=== PATIENT | male | born 1955 | race Caucasian/White ===

== ENCOUNTER → 2018-07-05 08:14 | Outpatient (CLI) | payer OTHER, SELFPAY ==
[2018-07-05 10:33] LABS: Anion Gap 9 (5-15); BUN 15 mg/dL (7-18); BUN/Creat Ratio 15.9 RATIO (10-20); Chloride 102 mmol/L (98-107); Creatinine, Serum 0.94 mg/dL (0.70-1.30); EST Glomerular Filtration Rate 86 mL/min (>60); Est Glom Filt Rate - Afr Amer 104 mL/min (>60); Glucose 127 mg/dL (74-106); Potassium 3.9 mmol/L (3.5-5.1); Sodium Level 142 mmol/L (136-145)
== END ==
PROVIDERS: Family Provider Family Medicine; PCP Family Medicine; Visit Provider Family Medicine
DX: I10 Essential (primary) hypertension (principal)
CPT/HCPCS: 36415; 80048

== ENCOUNTER → 2021-09-03 08:53 | Outpatient (CLI) | payer MEDICARE, OTHER, SELFPAY ==
[2021-09-03 10:45] LABS: ALB/GLOB Ratio 0.8 RATIO (0.9-2.4); AST(SGOT) 13 U/L (15-37); Alanine Aminotransfer ALT/SGPT 24 U/L (16-61); Albumin, Serum 3.3 g/dL (3.2-5.0); Alkaline Phosphatase 58 U/L (45-117); Anion Gap 9 (5-15); BUN 21 mg/dL (7-18); BUN/Creat Ratio 21.5 RATIO (10-20); Calcium,Total 9.4 mg/dL (8.5-10.1); Chloride 100 mmol/L (98-107); Cholesterol 210 mg/dL (200); Creatinine, Serum 0.98 mg/dL (0.70-1.30); EST Glomerular Filtration Rate 81 mL/min (>60); Est Glom Filt Rate - Afr Amer 98 mL/min (>60); Globulin 3.9 g/dL (2.2-4.2); Glucose 120 mg/dL (74-106); High Density Lipoprotein 51 mg/dL; PSA,Total - Annual Screen 2.41 ng/mL (0.00-4.00); Potassium 3.6 mmol/L (3.5-5.1); Protein, Total 7.2 g/dL (6.4-8.2); Sodium Level 139 mmol/L (136-145); Triglycerides 124 mg/dL; Very Low Density Lipoprotein 25 mg/dL (5-40)
== END ==
PROVIDERS: PCP Family Medicine; Referring Provider Family Medicine; Visit Provider Family Medicine
DX: F52.21 Male erectile disorder (principal); I10 Essential (primary) hypertension; Z12.5 Encounter for screening for malignant neoplasm of prostate
CPT/HCPCS: 36415; 80053; 80061; 84153; G0103

== ENCOUNTER → 2023-04-10 | Outpatient (CLI) | payer MEDICARE, OTHER, SELFPAY ==
[2023-04-10 10:08] LABS: Absolute Lymphocyte Count 2.61 X10^3/uL (0.83-4.51); Absolute Neutrophil Count 6.4 X10^3/uL (2.0-7.7); Basophil# 0.04 X10^3/uL; Basophil% 0.4 % (0-1); Eosinophil# 0.18 X10^3/uL; Eosinophils% 1.8 % (0-5); Hemoglobin 17.3 g/dL (13.0-16.5); Lymphocyte # 2.61 X10^3/ul (0.83-4.51); Lymphocyte % 25.6 % (19-41); Mean Corp Hgb Conc 34.6 g/dL (32-36); Mean Corpuscular Volume 89.6 fL (80-94); Mean Platelet Vol. 10.4 fl (6.2-12.0); Monocyte# 0.93 X10^3/uL; Monocyte% 9.1 % (0-10); NRBC Flagged by Analyzer 0 % (0-5); Neutrophil # 6.41 X10^3/uL (2.7-7.7); Neutrophil % 62.7 % (47-70); Platelet Count 276 K/mm3 (150-450); RBC Distribution Width CV 13.2 % (11.6-14.6); RBC Distribution Width SD 43.3 fl (35.1-43.9); Red Blood Count 5.58 M/mm3 (4.6-6.2); White Blood Count 10.2 K/mm3 (4.4-11.0)
[2023-04-10 10:11] LABS: Erythrocyte Sedimentation Rate 5 mm/hr (0-20)
[2023-04-10 10:30] LABS: ALB/GLOB Ratio 0.8 RATIO (0.9-2.4); AST(SGOT) 15 U/L (15-37); Alanine Aminotransfer ALT/SGPT 31 U/L (16-61); Albumin, Serum 3.5 g/dL (3.2-5.0); Alkaline Phosphatase 89 U/L (45-117); Anion Gap 6 (5-15); BUN 21 mg/dL (7-18); BUN/Creat Ratio 19.3 RATIO (10-20); CRP 7.79 mg/L (0.0-3.0); Calcium,Total 9.6 mg/dL (8.5-10.1); Chloride 101 mmol/L (98-107); Creatinine, Serum 1.09 mg/dL (0.70-1.30); EST Glomerular Filtration Rate 71 mL/min (>60); Est Glom Filt Rate - Afr Amer 86 mL/min (>60); Globulin 4.2 g/dL (2.2-4.2); Glucose 97 mg/dL (74-106); Potassium 3.9 mmol/L (3.5-5.1); Protein, Total 7.7 g/dL (6.4-8.2); Sodium Level 134 mmol/L (136-145)
== END | disposition home or self-care (01) ==
LOC: MTLAB 08:41
PROVIDERS: PCP Family Medicine; Referring Provider Family Medicine; Visit Provider Family Medicine
DX: R19.7 Diarrhea, unspecified (principal)
CPT/HCPCS: 36415; 80053; 85025; 85652; 86140

== ENCOUNTER → 2023-04-12 | Outpatient (CLI) | payer MEDICARE, OTHER, SELFPAY | END | disposition home or self-care (01) | PROVIDERS: PCP Family Medicine; Referring Provider Family Medicine; Visit Provider Family Medicine | DX: R19.7 Diarrhea, unspecified (principal) | CPT/HCPCS: 87177; 87209 ==

== ENCOUNTER 2023-05-19 07:55 | Day surgery (SDC) | payer MEDICARE, OTHER, SELFPAY ==
[2023-05-19] VITALS (8 sets, daily range): BP systolic 71–163; BP diastolic 54–83; PULSE 57–60; RESP 14–18; TEMP 36.1–36.7; O2SAT 96–100; BMI 24.8
[2023-05-19] MEDS: Lactated Ringers 1,000 ML 15 ML IV (08:14)
--- NOTE | 2023-05-19 08:59 | PCM.HP.BLA ---
History and Physical Date of Admission: 05/19/23 Intake Vital Signs ? 04/28/2312:52 Height 6 ft 1 in Weight: 188 lb 6 oz BMI 24.8 BP 148/84 H Blood Pressure Location Lt radial Position Sitting Respiration 18 Pulse 67 Pulse Source Monitor Temp 98.0 F Temp Source Temporal Intake Visit Reasons:?COLONOSCOPY/POLYP Chief Complaint: Diarrhea Director Child Abuse Therapy Required: No Is patient in pain?: No Allergies No Known Allergies Allergy (Verified 04/28/23 12:54) Medications lisinopril 20 mg-hydrochlorothiazide 12.5 mg tablet 1 ea PO DAILY 09/17/17 [History Confirmed 04/28/23] metoprolol tartrate 100 mg tablet 100 mg PO BID 09/17/17 [History Confirmed 04/28/23] atorvastatin 10 mg tablet 10 mg PO 04/28/23 [History Confirmed 04/28/23] multivitamin with minerals-folic acid 200 mcg chewable tablet (Adult Multivitamin Gummies) tab PO 04/28/23 [History Confirmed 04/28/23] simethicone 80 mg chewable tablet (Gas Relief (simethicone)) 80 mg PO 04/28/23 [History Confirmed 04/28/23] tadalafil 5 mg tablet (Cialis) 5 mg PO DAILY 04/28/23 [History Confirmed 04/28/23] PFSH Medical History?(Updated 04/28/23 @ 15:[address] Georges Lim MD) Bilateral inguinal hernia External hemorrhoids Hypertension Surgical History? S/P bilateral inguinal hernia repair S/P tonsillectomy Family History? Father CVA (cerebral vascular accident) Social History? Smoking Status:? Current every day smoker tobacco type: cigarettes second hand exposure:? Yes alcohol intake:? never substance use type:? does not use caffeine:? Yes what type of physical activity do you participate in:? none seatbelt use:? always HPI HPI HPI: Patient is a 59-year-old male here for colonoscopy.? He had a colonoscopy in 2017 and a polyp was removed.? He was recommended to repeat but has not done so yet.? He denies abdominal pain.? He says he usually has constipation but a few weeks ago he had an episode of extreme constipation and then has had diarrhea off and on ever since.? Patient denies any blood in his stool. ROS General General: Yes fatigue; No weight change, appetite, colon cancer, breast cancer or weakness HEENT HEENT: No difficulty swallowing, eye injury, eye surgery, swollen glands or hoarseness Endo Endocrine: No thyroid disease, diabetes mellitus, thyroid cancer, Hair loss, heat intolerance or cold intolerance Skin Skin: No rash or changing moles Breast Breast: No left breast lump, right breast lump, nipple discharge, breast pain, abnormal mammogram, abnormal US or breast enlargement Musc Musculoskeletal: Yes back problems; No arthritis, rheumatoid arthritis, gout or joint pain Cardio Cardiovascular: Yes high blood pressure; No murmur, pacemaker, heart disease, atrial fibrillation, heart attack, heart stent, palpitations, shortness of breat with exertion or chest pain Psych Psychiatric: No depression, anxiety or hearing voices Resp Respiratory: No shortness of breath, No sleep apnea, No cough, No COPD, No asthma, No emphysema and No wheezing Gastro Gastrointestinal: No abdominal pain, No nausea or vomiting, Yes diarrhea, No constipation, No blood in stool, No acid reflux, No hemorrhoids, No ulcers, No gallbladder problem and No black,tarry stools Gordy Hematologic: No blood thinners, No blood disorders, No bleeding, No anemia and No blood clots Neuro Neurologic: No system reviewed and no additional complaints, except as documented, No as per HPI, No abnormal gait, No abnormal hearing, No abnormal movements, No abnormal speech, No behavioral changes, No burning sensations, No confusion, No convulsions, No disequilibrium, No dizziness, No localized weakness, No frequent falls, No headache(s), No lack of coordination, No loss of vision, No memory loss, No numbness, No other visual disturbances, No radicular pain, No restless legs, No sensory deficit, No syncope, No tingling, No tremor(s), No weakness and No other Exam Const General: cooperative Orientation: alert and oriented x3 HENMT Head: normal to inspection Neck Neck: normal visual inspection and full ROM Chest Chest palpation & inspection: normal inspection of the chest Resp Effort & Inspection: normal respiratory effort Auscultation: clear to auscultation bilaterally Cardio Rate: regular rate Rhythm: regular rhythm GI Inspection: non-distended Palpation: soft and nontender Skin General: no rashes or lesions noted Neuro General: patient alert and patient oriented x3 Extrem General: full ROM Psych Appearance: grossly normal Mental Status: mental status grossly normal Assessment and Plan Assessment and Plan (1) History of colon polyps: ?Status:?Acute ?Plan: Patient has a history of colon polyps and is due for surveillance colonoscopy.? He is also been having some bowel habit changes with some diarrhea instead of just his normal constipation.? Patient also had an elevated CRP but this is not very specific.? Patient was given bowel prep instructions I will perform a colonoscopy. I explained endoscopy in detail to the patient.? I explained the risks including but not limited to stroke or heart attack with anesthesia, perforation of the GI tract, bleeding, infection.? I explained that any of these could necessitate further emergency surgery.? The patient understands and all questions were answered sufficiently.? The patient wishes to proceed with procedure. Georges Lim MD Pager: [facility] [address] [place] [address], [address] [place] [address] Office: I have examined the patient and the H&P has been reviewed. There are no clinical changes since date of exam.
--- NOTE | 2023-05-19 09:23 | OP.COLON_ITS ---
Patient Name: Baldo Moss Procedure Date: 05/19/2023 9:01 AM Date of : 1955 Age: 67 Procedure: Colonoscopy Indications: High risk colon cancer surveillance: Personal history of colonic polyps Providers: Georges Lim MD Referring MD: Georges Lim MD Medicines: Monitored Anesthesia Care Patient Profile: This is a 67 year old male. Refer to note in patient chart for documentation of history and physical. Last Colonoscopy: 5 years ago. Complications: No immediate complications. Procedure: Pre-Anesthesia Assessment: - Prior to the procedure, a History and Physical was performed, and patient medications and allergies were reviewed. The patient's tolerance of previous anesthesia was also reviewed. The risks and benefits of the procedure and the sedation options and risks were discussed with the patient. All questions were answered, and informed consent was obtained. Prior Anticoagulants: The patient has taken no previous anticoagulant or antiplatelet agents. After reviewing the risks and benefits, the patient was deemed in satisfactory condition to undergo the procedure. After I obtained informed consent, the scope was passed under direct vision. Throughout the procedure, the patient's blood pressure, pulse, and oxygen saturations were monitored continuously. The adult colonoscope was introduced through the anus and advanced to the cecum, identified by appendiceal orifice and ileocecal valve. The colonoscopy was performed without difficulty. The patient tolerated the procedure well. The quality of the bowel preparation was good. Scope In: 9:09:28 AM Scope Withdrawal Time 0 hours 4 minutes 15 seconds Scope Out: 9:17:41 AM Total Procedure Duration Time 0 hours 8 minutes 13 seconds Findings: The entire examined colon appeared normal on direct and retroflexion views. Impression: - The entire examined colon is normal on direct and retroflexion views. - No specimens collected. Recommendation: - Discharge patient to home. - Resume previous diet. - Continue present medications. - Repeat colonoscopy is not recommended due to current age (66 years or older) for screening purposes. Procedure Code(s): --- Professional --- 17865, Colonoscopy, flexible; diagnostic, including collection of specimen(s) by brushing or washing, when performed (separate procedure) Diagnosis Code(s): --- Professional --- Z86.010, Personal history of colonic polyps CPT copyright 2017 [employer]. All rights reserved. The codes documented in this report are preliminary and upon cognos developer review may be revised to meet current compliance requirements. Georges Lim MD 05/19/2023 9:23:02 AM This report has been signed electronically. Number of Addenda: 0 Note Initiated On: 05/19/2023 9:01 AM
--- NOTE | 2023-05-19 09:24 | OP.CCLET_ITS ---
05/19/2023 Jarret Connors [address] [place] [address] Re : Colonoscopy procedure for Baldo Ajay Dear Dr. Connors This procedure was performed on Friday, May 19, 2023. My impressions and recommendations are as follows: Impressions : - The entire examined colon is normal on direct and retroflexion views. - No specimens collected. Recommendations : - Discharge patient to home. - Resume previous diet. - Continue present medications. - Repeat colonoscopy is not recommended due to current age (66 years or older) for screening purposes. My findings are described in the full procedure note, which is enclosed. If I can be of further assistance, please feel free to contact me at Doctor phone number(s): , Work: . Sincerely, Georges Lim MD 05/19/2023 9:23:02 AM This report has been signed electronically.
== END 2023-05-19 10:18 | disposition home or self-care (01) ==
LOC: EN 07:55 → AC 07:56
PROVIDERS: PCP Family Medicine; Referring Provider Family Medicine; Visit Provider Surgery
PROC: 0DJD8ZZ Inspection of Lower Intestinal Tract, Via Natural or Artificial Opening Endoscopic (ICD-10-PCS; CPT 45378; principal; 2023-05-19 08:55)
DX: Z12.11 Encounter for screening for malignant neoplasm of colon (principal); I10 Essential (primary) hypertension; E78.00 Pure hypercholesterolemia, unspecified; F17.210 Nicotine dependence, cigarettes, uncomplicated; Z79.899 Other long term (current) drug therapy; Z86.010 Personal history of colon polyps
CPT/HCPCS: 45378; J7120; J2405

== ENCOUNTER → 2023-09-15 | Outpatient (CLI) | payer MEDICARE, OTHER, SELFPAY ==
[2023-09-15 16:08] LABS: ALB/GLOB Ratio 0.9 RATIO (0.9-2.4); AST(SGOT) 10 U/L (15-37); Alanine Aminotransfer ALT/SGPT 28 U/L (16-61); Albumin, Serum 3.3 g/dL (3.2-5.0); Alkaline Phosphatase 75 U/L (45-117); Anion Gap 6 (5-15); BUN 19 mg/dL (7-18); BUN/Creat Ratio 20.2 RATIO (10-20); Calcium,Total 9.2 mg/dL (8.5-10.1); Chloride 104 mmol/L (98-107); Cholesterol 139 mg/dL (200); Creatinine, Serum 0.94 mg/dL (0.70-1.30); EST Glomerular Filtration Rate 85 mL/min (>60); Est Glom Filt Rate - Afr Amer 102 mL/min (>60); Globulin 3.8 g/dL (2.2-4.2); Glucose 110 mg/dL (74-106); High Density Lipoprotein 43 mg/dL; PSA,Total- Diagnostic 3.47 ng/mL (0.0-4.0); Protein, Total 7.1 g/dL (6.4-8.2); Sodium Level 136 mmol/L (136-145); Triglycerides 198 mg/dL; Very Low Density Lipoprotein 40 mg/dL (5-40)
== END | disposition home or self-care (01) ==
LOC: MTLAB 13:34
PROVIDERS: PCP Family Medicine; Referring Provider Family Medicine; Visit Provider Family Medicine
DX: E78.5 Hyperlipidemia, unspecified (principal); N40.0 Benign prostatic hyperplasia without lower urinary tract symptoms
CPT/HCPCS: 36415; 80053; 80061; 84153

== ENCOUNTER 2023-09-18 18:52 | Emergency (ER) | payer MEDICARE, OTHER, SELFPAY ==
[2023-09-18 18:53] VITALS: BP 146/80; PULSE 64; RESP 18; TEMP 35.8; O2SAT 97; BMI 25.7
--- NOTE | 2023-09-18 19:52 | EX.ED.UPPERE ---
HPI History of Present Illness Chief Complaint: Upper Extremity Injury Informant: patient Narrative Narrative: Presents with redness swelling and itching to the dorsum of his right hand. Patient was working on a car. He stated he reached for a knife that was on a bench that had a lot of cobwebs on it. He does not know if the spider bit him. But he notices a little sore spot on the dorsum of his thumb. He then noticed that he had some swelling in the dorsum of his hand and wrist and it is itchy. This happened over a couple hours. No fevers or chills. No trouble breathing. No known cause of this but it is possible that there were chemicals or spider that caused this. [facility] Medical History Alcohol use Back pain Bilateral inguinal hernia Dietary restriction External hemorrhoids Heartburn High cholesterol Hypertension Smoker Wears contact lenses Wears dentures Wears glasses Home Medications metoprolol tartrate 100 mg tablet 100 mg PO BID 09/17/17 [History Last Taken 05/19/23] atorvastatin 10 mg tablet 10 mg PO DAILY 04/28/23 [History Last Taken Unknown] simethicone 80 mg chewable tablet (Gas Relief (simethicone)) 80 mg PO PRN PRN Abdominal Discomfort 04/28/23 [History Last Taken Unknown] tadalafil 5 mg tablet (Cialis) 5 mg PO DAILY 04/28/23 [History Last Taken Unknown] ibuprofen 200 mg tablet 400 mg PO Q6H PRN Pain 05/15/23 [History Last Taken Unknown] lisinopril 20 mg-hydrochlorothiazide 12.5 mg tablet 1 tab PO BID 05/15/23 [History Last Taken Unknown] multivitamin 1 tab PO DAILY 05/15/23 [History Last Taken Unknown] prednisone 20 mg tablet 40 mg (2 x 20 mg) PO DAILY 5 days #10 TABLETS 09/18/23 [Rx Last Taken Unknown] Allergy/AdvReac Type Severity Reaction Status Date / Time No Known Allergies Allergy Verified 09/18/23 18:53 Family History Father CVA (cerebral vascular accident) Surgical History Hx of colonoscopy Hx of wisdom tooth extraction S/P bilateral inguinal hernia repair S/P tonsillectomy Social History Smoking Status: Current every day smoker tobacco type: cigarettes second hand exposure: Yes alcohol intake: never substance use type: does not use caffeine: Yes what type of physical activity do you participate in: none seatbelt use: always ROS ROS ED Constitutional Constitutional ED: Denies chills or fever(s) Cardiovascular Cardiovascular: Denies chest pain Respiratory/Chest Respiratory/Chest: Denies cough or dyspnea Gastrointestinal Gastrointestinal: Denies nausea or vomiting Musculoskeletal Musculoskeletal: Denies back pain, myalgias or neck pain Integumentary Reports rash; Denies abscess Neurologic Neurologic: Denies paresthesias or weakness Hematologic/Lymphatic Hematologic/Lymphatic: Denies easy bleeding or easy bruising Allergic/Immunologic Allergic/Immunologic ED: Denies urticaria EXAM Physical Exam Narrative Exam Narrative: Neuro: Patient awake alert sitting comfortably in bed no acute distress. HEENT shows no intraoral swelling. Voice is normal. Neck shows no stridor Lungs are clear without wheeze. Saturations are normal at 97% on room air showing no hypoxia. Heart is regular. Extremities does show some erythema and slight soft tissue swelling to the dorsum of his right hand. This does progress a little on the dorsum of the thumb index and middle finger and a little bit over the wrist. It does not involve the palm. Its not really hot. It looks much more allergic than infectious. I do see a small spot on the back of his thumb that could be a bite jroge. There is another on the dorsum of the wrist that could be 1. But there is no stinger involved. Const Vital Signs: 09/18/23 18:53 09/18/23 19:37 Temperature 96.4 F L Temperature Source Temporal Pulse Rate 64 Respiratory Rate 18 Respiratory Effort Normal Non-Labored Respiratory Pattern Normal Blood Pressure 146/80 H Blood Pressure Mean 102 Pulse Ox 97 Oxygen Delivery Method Room Air MDM MDM MDM Narrative Medical decision making narrative: Is not diabetic. I will give him a short course of steroids and antihistamines. We discussed reasons to return. Discharge Plan Triage Chief Complaint: Upper Extremity Injury Other Complaint: Edema ED Provider: Bruno Santos Dx/Rx/DC Orders Clinical Impression: Allergic contact dermatitis of hand Instructions: ED Contact Dermatitis Prescriptions: New prednisone 20 mg tablet 40 mg PO DAILY 5 Days Qty: 10 0RF No Action simethicone [Gas Relief (simethicone)] 80 mg tablet,chewable 80 mg PO PRN PRN (Reason: Abdominal Discomfort) Patient Comments: chew and swallow 1 (ONE) TABLET BY MOUTH THREE TIMES DAILY WITH MEALS atorvastatin 10 mg tablet 10 mg PO DAILY tadalafil [Cialis] 5 mg tablet 5 mg PO DAILY metoprolol tartrate 100 MG tablet 100 mg PO BID multivitamin Tablet 1 tab PO DAILY lisinopril-hydrochlorothiazide 20-12.5 mg tablet 1 tab PO BID Patient Comments: TAKE 1 TABLET BY MOUTH TWICE DAILY ibuprofen 200 mg Tablet 400 mg PO Q6H PRN (Reason: Pain) Primary Care Provider: Jarret Connors Referrals: Jarret Connors MD [Primary Care Provider] - 3-5 Days Activity Restrictions/Additional Instructions: Take Claritin once a day for the next 5 days. Disposition Disposition: Home, Self Care
[2023-09-18 20:18] VITALS: PULSE 71; RESP 18; O2SAT 97
[2023-09-18] MEDS: Loratadine 10 MG Tablet PO (20:18)
[2023-09-18] MEDS: predniSONE 20 MG Tablet 40 MG PO (20:18)
== END 2023-09-18 20:21 | disposition home or self-care (01) ==
PROVIDERS: Emergency Provider Emergency Medicine; PCP Family Medicine; Visit Provider Emergency Medicine
DX: L23.89 Allergic contact dermatitis due to other agents (principal); I10 Essential (primary) hypertension; E78.00 Pure hypercholesterolemia, unspecified; F17.210 Nicotine dependence, cigarettes, uncomplicated; Z79.899 Other long term (current) drug therapy
CPT/HCPCS: 99285

== ENCOUNTER → 2024-10-11 | Outpatient (CLI) | payer MEDICARE, OTHER, SELFPAY ==
[2024-10-11 17:45] LABS: Hematocrit 49.1 % (40-54); Hemoglobin 16.2 g/dL (13.0-16.5); Mean Corpuscular Volume 90.9 fL (80-94); Mean Platelet Vol. 9.8 fl (6.2-12.0); Platelet Count 254 K/mm3 (150-450); RBC Distribution Width CV 12.9 % (11.6-14.6); RBC Distribution Width SD 42.7 fl (35.1-43.9); White Blood Count 8.7 K/mm3 (4.4-11.0)
[2024-10-11 18:06] LABS: AST(SGOT) 16 U/L (15-37); Alanine Aminotransfer ALT/SGPT 29 U/L (16-61); Albumin, Serum 3.5 g/dL (3.2-5.0); Alkaline Phosphatase 70 U/L (45-117); Anion Gap 10 (5-15); BUN 22 mg/dL (7-18); Calcium,Total 9.1 mg/dL (8.5-10.1); Chloride 105 mmol/L (98-107); Cholesterol 138 mg/dL (200); Creatinine, Serum 1.05 mg/dL (0.70-1.30); EST Glomerular Filtration Rate 74 mL/min (>60); Est Glom Filt Rate - Afr Amer 90 mL/min (>60); Globulin 3.5 g/dL (2.2-4.2); Glucose 120 mg/dL (74-106); High Density Lipoprotein 44 mg/dL; PSA,Total - Annual Screen 3.08 ng/mL (0.00-4.00); Potassium 3.8 mmol/L (3.5-5.1); Sodium Level 138 mmol/L (136-145); Triglycerides 152 mg/dL; Very Low Density Lipoprotein 30 mg/dL (5-40)
== END | disposition home or self-care (01) ==
PROVIDERS: PCP Family Medicine; Referring Provider Family Medicine; Visit Provider Family Medicine
DX: I10 Essential (primary) hypertension (principal); N40.0 Benign prostatic hyperplasia without lower urinary tract symptoms; R73.01 Impaired fasting glucose; Z12.5 Encounter for screening for malignant neoplasm of prostate
CPT/HCPCS: 36415; 80053; 80061; 84153; 85027; G0103

== ENCOUNTER → 2025-09-19 | Outpatient (CLI) | payer MEDICARE, OTHER, SELFPAY ==
[2025-09-19 14:16] LABS: PSA,Total- Diagnostic 3.88 ng/mL (0.00-4.00)
== END | disposition home or self-care (01) ==
LOC: MFPLAB 10:00
PROVIDERS: PCP Family Medicine
DX: Z12.5 Encounter for screening for malignant neoplasm of prostate (principal)
CPT/HCPCS: 36415; 84153